=== PATIENT | male | born 1965 | race Two or more races ===

== ENCOUNTER 2025-01-15 19:02 | Emergency (ER) | payer MEDICAID, SELFPAY ==
[2025-01-15 19:02] VITALS: BMI 31.8
[2025-01-15 19:12] VITALS: BP 116/71; PULSE 77; RESP 18; TEMP 36.8; O2SAT 98
--- NOTE | 2025-01-15 19:23 | PD.EDRME ---
Rapid Medical Screening Exam RME Arrival date/time: 01/15/25 19:02 Chief Complaint: Weakness Time Seen by Provider: 01/15/25 19:05 Vital signs: Vital Signs Temperature 98.2 F 01/15/25 19:12 Pulse Rate 77 01/15/25 19:12 Respiratory Rate 18 01/15/25 19:12 Blood Pressure 116/71 01/15/25 19:12 Pulse Oximetry (%) 98 01/15/25 19:12 Oxygen Delivery Method Room Air 01/15/25 19:12 Vital signs reviewed by provider: Yes RME Narrative: 59-year-old male presents to the ED with complaint of weakness, nausea and vomiting that began suddenly at 11 AM today while walking to the store. He is a diabetic on oral medications. Upon questioning he is also complaining of some chest pain and shortness of breath. I have greeted and performed a focused initial assessment of this patient. A comprehensive ED assessment and evaluation of the patient, analysis of all test results, and completion of the medical decision making process will be conducted by additional ED providers.
--- NOTE | 2025-01-15 19:25 | XR_ITS ---
Examination: PA lateral chest 2 views TECHNIQUE: Upright PA and lateral chest 2 views BMD I: January 15, 2025 1939 hours INDICATIONS: Chest pain today. FINDINGS: Normal heart size Minor scarring in the lingular segment. No pneumonia or pulmonary edema IMPRESSION: No pneumonia or pulmonary edema Mild hyperexpansion
--- NOTE | 2025-01-15 19:25 | EKG_ITS ---
[facility] Test Date: 2025-01-15 Pat Name: Maciej Prince Department: Room: - Gender: Male Sales Representative: : 1965 Requested By: Riya Soares Order Number: [id number] Reading MD: Riya Soares Measurements Intervals [place] Rate: 78 P: 61 WA: 159 QRS: -76 QRSD: 90 T: 85 QT: 362 QTc: 415 Interpretive Statements SINUS RHYTHM LEFT AXIS DEVIATION [QRS AXIS < -30] PATTERN CONSISTENT WITH PULMONARY DISEASE No previous ECG available for comparison /[id number]/S0/[id number]/[id number].pdf
[2025-01-15 19:47] LABS: Basophils # (Auto) 0.1 Thou/mm3 (0.0-0.2); Basophils % (Auto) 1 % (0-2.5); Eosinophils # (Auto) 0.1 Thou/mm3 (0.0-0.5); Eosinophils % (Auto) 1 % (0-10); Hematocrit 36.3 % (41.0-53.0); Hemoglobin 12.8 g/dL (13.5-16.0); Immature Granulocytes % (Auto) 0 % (0-0); Immature Granulocytes Auto 0.06 Thou/mm3 (0.00-0.00); Lymphocytes # (Auto) 2.1 Thou/mm3 (1.0-4.8); Lymphocytes % (Auto) 12 % (10-50); Mean Corpuscular HGB Conc 35.3 g/dl (31.0-37.0); Mean Corpuscular Volume 82 fL (80-100); Monocytes % (Auto) 6 % (0-12); Neutrophils # (Auto) 14.2 Thou/mm3 (1.8-7.7); Neutrophils % (Auto) 81 % (37-80); Nucleated Red Blood Cell % 0 /100 WBC (0); Platelet Count 311 Thou/mm3 (140-440); RDW Standard Deviation 41.6 fL (35.1-43.9); Red Blood Count 4.41 Miln/mm3 (4.50-5.90); White Blood Count 17.6 Thou/mm3 (3.8-10.6)
[2025-01-15] MEDS: ONDANSETRON ODT 4 MG TABRAP PO (19:56)
[2025-01-15 20:04] LABS: B-Type Natriuretic Peptide < 20 pg/mL (0-100)
[2025-01-15 20:10] LABS: Collection Type, Urine Clean Catch
[2025-01-15 20:15] LABS: Bilirubin,Urine Negative (Negative); Blood,Urine Negative (Negative); Clarity,Urine Clear (Clear/Hazy); Color,Urine Lt-Yellow (Lt Yel-Yel); Glucose, Urine 4+ (Negative); Hyaline Casts,Urine 1 /hpf (0-1); Ketones,Urine Negative (Negative); Leukocyte Esterase,Urine Negative (Negative); Nitrite,Urine Negative (Negative); PH,Urine 5.5 (5.0-7.0); Protein,Urine 1+ (Neg - Trace); RBC,Urine 1 /hpf (0-3); Specific Gravity,Urine 1.011 (1.001-1.035); Squamous Epithelial Cell,Urine 1 /hpf (0-5); Urobilinogen,Urine Negative mg/dL (0.0-1.0); WBC,Urine 1 /hpf (0-5)
[2025-01-15 20:27] LABS: Alanine Aminotransferase 12 U/L (10-49); Albumin, Serum 4.9 gm/dL (3.5-5.0); Albumin/Globulin Ratio 1.5 (1.2-2.2); Alkaline Phosphatase 149 U/L (46-116); Anion Gap 9 (7-16); Aspartate Amino Transferase 11 U/L (0-34); BUN/Creatinine Ratio 12 Ratio (12-20); Bilirubin,Total 0.5 mg/dL (0.3-1.2); Blood Urea Nitrogen 33 mg/dL (9-23); Calcium 9.8 mg/dL (8.3-10.6); Calcium (Corrected) 9.8 mg/dL (8.5-10.1); Carbon Dioxide 26.5 mMol/L (20.0-31.0); Chloride 98 mMol/L (98-107); Creatinine (Component) 2.8 mg/dL (0.6-1.3); Estimated Creatinine Clearance 24.5 mL/min (>60); Globulin 3.3 gm/dL (2.3-3.5); Glucose 331 mg/dL (74-106); Magnesium 2.2 mg/dL (1.6-2.6); Osmolality,Calculated 286 (275-295); Potassium 5.2 mMol/L (3.4-5.1); Sodium 133 mMol/L (136-145); Total Protein 8.2 gm/dL (5.7-8.2); Troponin I < 0.020 ng/mL (0.0-0.045); eGFR 26 See Note
[2025-01-15 20:47] LABS: INR 1.1 (0.9-1.3); Partial Thromboplastin Time 26.9 Seconds (22.0-36.0); Prothrombin Time 11.6 Seconds (9.0-12.2)
[2025-01-15 21:21] LABS: LDH (Lactate Dehydrogenase) 195 U/L (120-246)
[2025-01-15 21:50] LABS: Amphetamine/Methamp Scrn,U Negative (Negative); Barbiturate Screen,Urine Negative (Negative); Benzodiazepines Screen,Urine Negative (Negative); Benzoylecgonine Screen, Ur Negative (Negative); Fentanyl Screen,Urine Negative (Negative); Opiate Screen,Urine Negative (Negative); THC Screen,Urine Negative (Negative)
--- NOTE | 2025-01-15 23:21 | PD.EDNV ---
Nausea/Vomit./Diarrhea-RME/HPI General Chief complaint: Weakness Stated complaint: WEAKNESS, VOMITING Time Seen by Provider: 01/15/25 19:05 Arrival date/time: 01/15/25 19:02 RME / HPI RME / HPI Narrative: 59-year-old male presents to the ED with complaint of weakness, nausea and vomiting that began suddenly at 11 AM today while walking to the store. He is a diabetic on oral medications. Upon questioning he is also complaining of some chest pain and shortness of breath. I have greeted and performed a focused initial assessment of this patient. A comprehensive ED assessment and evaluation of the patient, analysis of all test results, and completion of the medical decision making process will be conducted by additional ED providers. Dr. Campbell?s Main ED Evaluation:?59 y/o male with Hx of Type II DM presents to ED c/o of vomiting and generalized weakness x 1 day. Patient also reports minor epigastric pain that he believes is due to the vomiting. No radiation or migration. Patient takes Metformin to manage his diabetes. Denies any diarrhea, fever, chills, dysuria, chest pain or any other associated symptoms. NKA. Patient sees Tania Kearney at [facility]. Related Data Previous Rx's ?Medication ?Instructions ?Recorded meloxicam 7.5 mg tablet 7.5 mg PO QDAY #10 tabs 12/25/21 ondansetron 4 mg disintegrating 4 mg PO Q6H PRN nausea and 01/15/25 tablet vomiting #14 tabs Allergies Allergy/AdvReac Type Severity Reaction Status Date / Time No Known Allergies Allergy Verified 12/27/21 14:30 Review of Systems Review of Systems Systems Reviewed: All systems reviewed, normal except as documented ED Exam Narrative Physical exam: GENERAL APPEARANCE: alert and oriented x 4, well-developed, well-nourished, no acute distress VITALS: All vitals were reviewed and the pulse ox is 98% on room air, which is normal according to my interpretation. HEENT: Normocephalic, atraumatic; pupils equal, round, reactive to light; EOMI; mucous membranes pink, moist; oropharynx clear NECK: Supple LUNGS: CTABL; no wheezes, no rales, no rhonchi HEART: Regular rate, regular rhythm; normal S1, S2; no murmurs ABDOMEN: non distended; normal BS; soft, no tenderness, no guarding, no rebound; no masses, no organomegaly, no hernia BACK: no CVA tenderness EXTREMITIES: atraumatic; no edema NEUROLOGIC: awake; alert and oriented x4; cranial nerves II-XII grossly intact; no focal sensory or motor deficits PSYCHIATRIC: appropriate mood and affect SKIN: warm, dry, normal color; no rashes Course Quality Measures none Orders Category Date Time Status EKG (ED ONLY) *Do not use* NOW Care 01/15/25 19:25 Completed IV [Insert IV] NOW Care 01/15/25 19:26 Completed EKG (ED Only) Stat Exams 01/15/25 19:25 Draft XR chest 2V Stat Exams 01/15/25 19:25 Completed B-Type Natriuretic Peptide Stat Lab 01/15/25 19:35 Completed CBC Stat Lab 01/15/25 19:35 Completed Comprehensive Metabolic Panel Stat Lab 01/15/25 19:35 Completed Drug Screen,Urine Stat Lab 01/15/25 19:58 Completed LDH (Lactate Dehydrogenase) Stat Lab 01/15/25 19:35 Completed Magnesium Stat Lab 01/15/25 19:35 Completed Partial Thromboplastin Time Stat Lab 01/15/25 19:35 Completed Prothrombin Time with INR Stat Lab 01/15/25 19:35 Completed Troponin I Stat Lab 01/15/25 19:35 Completed Urinalysis Stat Lab 01/15/25 19:58 Completed Ondansetron Odt [Zofran Odt] Med 01/15/25 19:25 Discontinued 4 mg PO X1 ONE Vital Signs Vital signs: Vital Signs Temperature 98.2 F 01/15/25 19:12 Pulse Rate 77 01/15/25 19:12 Respiratory Rate 18 01/15/25 19:12 Blood Pressure 116/71 01/15/25 19:12 Pulse Oximetry (%) 98 01/15/25 19:12 Oxygen Delivery Method Room Air 01/15/25 19:12 Nausea/Vomiting/Diarrhea MDM Narrative MDM Narrative:: Scribe Attestation: Josselyn Zuniga am scribing for and in the presence of Dr. Campbell. Provider Notation: Although this document has been carefully reviewed, there may still be some phonetic and other typographical errors.? These errors are purely grammatical due to imperfections in the software program and should not be construed in any way to? compromise the substance of the patient's medical care during this visit. Patient data External records reviewed:: [facility] previous records (No recent ED records available for review.) Clinical information provided by:: patient Social determinants that could affect healthcare access:: none Patient has the following chronic illnesses:: Type II DM How is presenting disease/condition affected by chronic disease/condition?: exacerbated by Evaluation data The following diagnostics were reviewed and interpreted by me:: lab results, radiology exam(s) and EKG tracing(s) (EKG at 1929 shows normal sinus rhythm at 78, left axis deviation, Q-waves in v1 and v2, inverted T-waves in AVL, no ectopy, no STEMI, per my interpretation.) Lab and/or radiology exams considered but not ordered:: None. Interpretation Summary: LABS Toxicology screening was unremarkable, per my interpretation. UA shows Protein 1+ and Glucose 4+. Chemistry shows sodium 133, Potassium 5.2, BUN 33, Creatinine 2.8, Estimated Creatinine 24.5, eGFR 26, Glucose 331, Alkaline phosphates 149. Hematology shows WBC 17.6, RBC 4.41, Hgb 12.8, Hct 36.3%. RADIOLOGY Chest X-Ray: Patient: Maciej Prince. Record#: [id number] Birthdate: 1965 Age/Sex: 59 / M Location: [facility] Attending Dr: Ordering Physician: Riay Fletcher PA-C Date of Service: 01/15/25 Procedure(s): XR chest 2V Accession Number(s): [id number] cc: Tania Kearney; Timothy Alonso MD; Riya FletcherC~ Examination: PA lateral chest 2 views TECHNIQUE: Upright PA and lateral chest 2 views BMD I: January 15, 2025 1939 hours INDICATIONS: Chest pain today. FINDINGS: Normal heart size Minor scarring in the lingular segment. No pneumonia or pulmonary edema IMPRESSION: No pneumonia or pulmonary edema Mild hyperexpansion Dictated By: Timothy Alonso MD Signed By: <Electronically signed by Timothy Alonso MD in OV> 01/15/25 2114 Medications / Prescriptions Medications / Prescriptions considered but not ordered:: None Medication administrations:: Medication Administration History Discontinued Medications Ondansetron HCl (Ondansetron Odt 4 Mg Tabrap) 4 mg PO X1 ONE; Protocol Stop: 01/15/25 19:26 Last Admin: 01/15/25 19:56 Dose: 4 mg Documented By: CB See above if any. Consultations Consultation(s) initiated? (list below): No Diagnosis Nausea Differential Diagnosis: food poisoning, gastroenteritis, drug-induced nausea and vomiting and dehydration Most likely diagnosis given after review of the tests above:: See clinical impression below. Admission Indicated Admission indicated?: not indicated Explain why admission is indicated or not indicated:: Patient has no emergent abnormalities in their studies and can be managed on an outpatient basis. Admission Request Was there a request for admission?: No Disposition Plan Disposition Plan: Discharge Discharge Attestation Discharge Attestation: The patient and all family members were given an opportunity to ask questions and understood the discharge instructions. Discharge instructions specifically effects, indications for sooner follow up or return to the emergency department, and the expected course of current diagnosis. Patient condition: Stable Discharge Plan Plan Patient Disposition: HOME (Self Care) Discharge Disposition comment: Stable for discharge home Patient condition on transfer: Stable Prescriptions/Referrals Prescriptions/Med Rec: New ondansetron 4 mg tablet,disintegrating 4 mg PO Q6H PRN (Reason: nausea and vomiting) Qty: 14 0RF No Action meloxicam 7.5 mg tablet 7.5 mg PO QDAY Qty: 10 0RF Referrals: [facility] [Outside] - In 1 week Tania Kearney FNP-C [Primary Care Provider] - In 1 week Problem List Clinical Impression: Vomiting, Acute hyperglycemia Patient/Caregiver Discharge Instructions Discharge Activity: activity as tolerated Education Materials: High Blood Sugar (Hyperglycemia), Self-Care for Vomiting and Diarrhea, ED Diet for Vomiting or ..., ED Vomiting (Adult) Additional Instructions: Please return to the emergency department if you have any worsening or any further medical problems and we will help you. Otherwise you should follow-up with your primary care doctor within the next several days. Print Language: Libyan Stand Alone Forms: Anna Award Info., Patient Portal Info Letter
== END 2025-01-15 23:24 | disposition home or self-care (01) ==
PROVIDERS: Physician Assistant; Emergency Provider Emergency Medicine
DX: E11.65 Type 2 diabetes mellitus with hyperglycemia (principal); J98.4 Other disorders of lung; R94.31 Abnormal electrocardiogram [ECG] [EKG]; R11.10 Vomiting, unspecified
CPT/HCPCS: 36415; 71046; 80053; 80307; 81001; 83615; 83735; 83880; 84484; 85025; 85610; 85730; 93005; 99283; Q0162